=== PATIENT | female | born 1980 | race Caucasian/White ===

== ENCOUNTER 2021-06-07 14:12 | Emergency (ER) | payer SELFPAY ==
--- NOTE | 2021-06-07 14:38 | Emergency Department Report ---
HPI - General Chief Complaint: Chest Pain Time Seen by Provider: 06/07/21 14:35 - HPI HPI: For the last 2 days the patient has had a constant presternal nonradiating waxing and waning sharp-like nonpleuritic chest pain not associated with any shortness of breath nausea nor diaphoresis. Patient has not taken any medicines for this. This is never happened to her before. She has a history of type 2 diabetes for which she is supposed to be taking 500 mg twice daily of Metformin but she ran out. She denies nausea vomiting fever chills or any other ass ociated symptoms and nothing makes this worse nor better. ED Past Medical Hx - Past Medical History Previous Medical History?: Yes Hx CVA: Yes Hx Diabetes: Yes (Type II) - Surgical History Past Surgical History?: No - Family History Family history: no significant - Social History Smoking Status: Never Smoker Substance Use Type: None - Medications Home Medications: Home Medications Medication Instructions Recorded Confirmed Last Taken Type Aspirin [[place] Aspirin EC] 81 mg PO QDAC #30 06/07/21 Unknown Rx metFORMIN [Glucophage] 500 mg PO BID #60 06/07/21 Unknown Rx ED Review of Systems ROS: Stated complaint: CHEST PAIN/BLOOD PRESSURE HIGH Other details as noted in HPI Comment: All other systems reviewed and negative Physical Exam - Physical Exam Vital Signs: Vital Signs 06/07/21 14:19 Temperature 98.3 F Pulse Rate 100 H Respiratory 20 Rate Blood Pressure 138/88 [Right] O2 Sat by Pulse 97 Oximetry Physical Exam: Physical Exam: Constitutional: AAOX3. No acute distress. No diaphoresis. HENT: Normocephalic. Pupils equal and reactive. No throat edema or erythema. Neck: No neck rigidity or tenderness. Cardiovascular: Heart sounds: No murmur. Normal rate and regular rhythm. Pulses: Intact distal pulses. Lungs: No wheezing or rales. Chest wall: No tenderness. Abdominal: No distension. No mass/pulsatile mass. No abdominal tenderness, guarding nor rebound. Musculoskeletal: Normal range of motion. No edema, No calf TTP. Skin: Warm and dry. Neurological: Alert and oriented to person, place, and time. Psychiatric: Mood and affect normal. Normal cognition and memory. Normal judgement. ED Course Vital Signs 06/07/21 14:19 Temperature 98.3 F Pulse Rate 100 H Respiratory 20 Rate Blood Pressure 138/88 [Right] O2 Sat by Pulse 97 Oximetry - Reevaluation(s) Reevaluation #1: 06/07/21 17:59 EKG done interpreted at 1424 showed a rate of 90, normal. The rhythm is sinus rhythm, normal. There is no specific generalized diffuse leads. Reevaluation #2: 06/07/21 18:00 The patient remained chest pain-free while in the emergency department. She will follow up with her PCP or with the doctor we have assigned her as soon as possible return if any other issues arise. I will refill her Metformin 500 mg p.o. twice daily and give her some aspirin also. ED Medical Decision Making - Lab Data Result diagrams: 06/07/21 15:36 06/07/21 15:36 Critical care attestation.: If time is entered above; I have spent that time in minutes in the direct care o f this critically ill patient, excluding procedure time. ED Disposition Clinical Impression: Chest pain Disposition: 01 HOME / SELF CARE / HOMELESS Is pt being admited?: No Does the pt Need Aspirin: No Condition: Stable Instructions: Nonspecific Chest Pain, Adult Prescriptions: metFORMIN [Glucophage] 500 mg PO BID #60 Aspirin [[place] Aspirin EC] 81 mg PO QDAC #30 Referrals: HALINA PURCELL MD [Staff Physician] - 3-5 Days Time of Disposition: 18:00 Print Language: GERMAN
[2021-06-07 16:20] LABS: Basophils # (Auto) 0.1 K/mm3 (0.0-0.1); Basophils % (Auto) 0.6 % (0.0-1.8); Eosinophils # (Auto) 0.6 K/mm3 (0.0-0.4); Eosinophils % (Auto) 4.9 % (0.0-4.3); Hematocrit 41.4 % (30.3-42.9); Hemoglobin 14.2 gm/dl (10.1-14.3); Lymphocytes # (Auto) 2.3 K/mm3 (1.2-5.4); Lymphocytes % (Auto) 19.8 % (13.4-35.0); Mean Corpuscular HGB Conc 34 % (30-34); Mean Corpuscular Volume 88 fl (79-97); Monocytes # (Auto) 0.7 K/mm3 (0.0-0.8); Monocytes % (Auto) 6.1 % (0.0-7.3); Platelet Count 326 K/mm3 (140-440); Red Cell Distribution Width 14.1 % (13.2-15.2)
[2021-06-07 16:48] LABS: Alanine Aminotransferase 12 units/L (7-56); Albumin 3.8 g/dL (3.9-5); BUN/Creatinine Ratio 11; Blood Urea Nitrogen 9 mg/dL (7-17); Calcium 9.1 mg/dL (8.4-10.2); Hemolysis Index 2
--- NOTE | 2021-06-07 16:51 | XRay Report ---
CHEST 1 VIEW 06/07/2021 4:32 PM INDICATION / CLINICAL INFORMATION: Left chest pain for 2 days. Elevated blood pressure and headache. COMPARISON: None available. FINDINGS: SUPPORT DEVICES: None. HEART / MEDIASTINUM: The heart size and pulmonary vasculature are normal. The aorta is normal in carline ibrahima. LUNGS / PLEURA: No significant pulmonary or pleural abnormality. No pneumothorax. ADDITIONAL FINDINGS: No significant additional findings. IMPRESSION: No acute findings. Signer Name: Ant Almodovar MD Signed: 06/07/2021 4:46 PM Workstation Name: [email or web address]
[2021-06-07 18:13] VITALS: BP 137/75
--- NOTE | 2021-06-09 20:02 | Electrocardiograph Report ---
[facility] Test Date: 2021-06-07 Test Time: 14:24:58 Pat Name: DONYA FLYNN Department: Room: Gender: F Biomedical Equipment Specialist: ARI : 1980 Requested By: KAROL DAVILA Order Number: [id number] Reading MD: Ag Cool Measurements Intervals [place] Rate: 90 P: 47 MN: 155 QRS: 12 QRSD: 77 T: -76 QT: 363 QTc: 444 Interpretive Statements Sinus rhythm Nonspecific T abnormalities, diffuse leads No previous ECG available for comparison Electronically Signed On 06-09-2021 20:02:04 EDT by Ag Cool
== END 2021-06-07 18:13 | disposition home or self-care (01) ==
LOC: ED 14:12
DX: R07.9 Chest pain, unspecified (principal); E11.9 Type 2 diabetes mellitus without complications; Z86.73 Personal history of transient ischemic attack (TIA), and cerebral infarction without residual deficits
CPT/HCPCS: 36415; 71045; 80053; 82962; 83880; 84484; 84703; 85025; 93005; 99284

== ENCOUNTER 2021-06-21 10:11 | Emergency (ER) | payer MEDICAID ==
[2021-06-21] MEDS ORDERED: SODIUM CHLORIDE 0.9% 1000 ML 2,000 ML IV ONE (11:28)
[2021-06-21] MEDS ORDERED: ACETAMINOPHEN 325 MG TAB PO ONE (11:33)
[2021-06-21] MEDS ORDERED: ONDANSETRON 4 MG/2 ML INJ IV ONE (11:33)
--- NOTE | 2021-06-21 11:37 | Emergency Department Report ---
ED General Adult HPI - General Chief complaint: Hyperglycemia Stated complaint: My blood sugar is high Time Seen by Provider: 06/21/21 11:19 Source: patient, RN notes reviewed, old records reviewed Mode of arrival: Ambulatory Limitations: No Limitations - History of Present Illness Initial comments: This patient is a pleasant and cooperative 40-year-old female, with a history of body mass index 34.5, reported history of poorly controlled type 2 diabetes, currently maintained on metformin, recently moved here from [place] a few months ago, reports that she does not know her specific hemoglobin A1c, but believes that it is "high." Patient presents to the ER today with a complaint of hyperglycemia and frequent urination. She denies dysuria. She denies headache, neck pain, chest pain, shortness of breath. She endorses chronic lower abdominal cramping. She does not know if she is She recently had her metformin prescription refilled at this hospital. She is requesting a different medication because she does not like the side effect profile of metformin. -: Gradual Consistency: constant Improves with: none Worsens with: none - Related Data Previous Rx's Medication Instructions Recorded Last Taken Type Aspirin [[place] Aspirin EC] 81 mg PO QDAC #30 06/07/21 Unknown Rx Acetaminophen [Non-Aspirin Extra 500 mg PO Q6HR PRN #30 tablet 06/21/21 Unknown Rx Strength] Metoclopramide [Reglan] 10 mg PO QID PRN #30 tablet 06/21/21 Unknown Rx metFORMIN [Glucophage] 500 mg PO BID #60 tab 06/21/21 Unknown Rx Allergies Allergy/AdvReac Type Severity Reaction Status Date / Time No Known Allergies Allergy Verified 06/21/21 10:47 ED Review of Systems ROS: Stated complaint: HIHG BS/SHARP PAIN IN EVA/BACK Other details as noted in HPI Constitutional: denies: fever Eyes: denies: vision change ENT: denies: epistaxis Respiratory: denies: cough Cardiovascular: denies: chest pain Gastrointestinal: as per HPI (Lower abdominal cramping), diarrhea (Associated with metformin) Genitourinary: frequency. denies: dysuria Musculoskeletal: denies: back pain Neurological: denies: weakness Hematological/Lymphatic: denies: easy bleeding ED Past Medical Hx - Past Medical History Previous Medical History?: Yes Hx CVA: Yes Hx Diabetes: Yes (Type II) - Social History Smoking Status: Never Smoker Substance Use Type: None - Medications Home Medications: Home Medications Medication Instructions Recorded Confirmed Last Taken Type Aspirin [[place] Aspirin EC] 81 mg PO QDAC #30 06/07/21 Unknown Rx Acetaminophen [Non-Aspirin Extra 500 mg PO Q6HR PRN #30 tablet 06/21/21 Unknown Rx Strength] Metoclopramide [Reglan] 10 mg PO QID PRN #30 tablet 06/21/21 Unknown Rx metFORMIN [Glucophage] 500 mg PO BID #60 tab 06/21/21 Unknown Rx ED Physical Exam - General Limitations: No Limitations General appearance: alert, in no apparent distress - Head Head exam: Present: atraumatic, normocephalic - Eye Eye exam: Present: normal appearance, EOMI. Absent: nystagmus - ENT ENT exam: Present: normal exam, normal orophraynx, mucous membranes moist, normal external ear exam - Neck Neck exam: Present: normal inspection, full ROM. Absent: tenderness, meningismus - Respiratory Respiratory exam: Present: normal lung sounds bilaterally. Absent: respiratory distress, wheezes, rales, rhonchi, stridor, decreased breath sounds - Cardiovascular Cardiovascular Exam: Present: regular rate, normal rhythm, normal heart sounds. Absent: bradycardia, tachycardia, irregular rhythm, systolic murmur, diastolic murmur, rubs, gallop - GI/Abdominal GI/Abdominal exam: Present: soft. Absent: distended, tenderness, guarding, rebound, rigid, pulsatile mass - Extremities Exam Extremities exam: Present: normal inspection, full ROM, other (2+ pulses noted in the bilateral upper and lower extremities. There is no palpable cord. negative Homans sign. Muscular compartments are soft. The pelvis is stable.). Absent: pedal edema, calf tenderness - Back Exam Back exam: Present: normal inspection, full ROM. Absent: tenderness, CVA tenderness (R), CVA tenderness (L), paraspinal tenderness, vertebral tenderness - Neurological Exam Neurological exam: Present: alert, oriented X3, other (No facial droop. Tongue midline. Extraocular movements intact bilaterally. Facial sensation intact to light touch in V1, V2, V3 distribution bilaterally. 5 and a 5 strength in 4 extremities. Sensation intact to light touch in 4 extremities.). Absent: motor sensory deficit - Psychiatric Psychiatric exam: Present: normal affect, normal mood - Skin Skin exam: Present: warm, dry, intact, normal color. Absent: rash ED Course Vital Signs 06/21/21 06/21/21 06/21/21 10:46 11:18 11:21 Temperature 98.4 F Pulse Rate 87 83 Respiratory 18 16 13 Rate Blood Pressure 134/93 O2 Sat by Pulse 99 100 98 Oximetry O2 Sat by Pulse Oximetry [ Digit-Finger] 06/21/21 06/21/21 06/21/21 11:31 11:45 12:01 Temperature Pulse Rate 84 87 83 Respiratory 17 14 18 Rate Blood Pressure 129/85 129/85 O2 Sat by Pulse 98 100 97 Oximetry O2 Sat by Pulse Oximetry [ Digit-Finger] 06/21/21 06/21/21 06/21/21 12:15 12:31 12:45 Temperature Pulse Rate 87 86 84 Respiratory 16 16 17 Rate Blood Pressure 137/99 137/99 140/100 O2 Sat by Pulse 98 96 97 Oximetry O2 Sat by Pulse Oximetry [ Digit-Finger] 06/21/21 06/21/21 06/21/21 13:01 13:15 13:31 Temperature Pulse Rate 83 84 85 Respiratory 9 L 16 15 Rate Blood Pressure 140/100 138/99 138/99 O2 Sat by Pulse 98 99 99 Oximetry O2 Sat by Pulse Oximetry [ Digit-Finger] 06/21/21 06/21/21 06/21/21 13:45 14:01 14:15 Temperature Pulse Rate 89 81 81 Respiratory 15 25 H 20 Rate Blood Pressure 132/94 132/94 136/103 O2 Sat by Pulse 100 99 98 Oximetry O2 Sat by Pulse Oximetry [ Digit-Finger] 06/21/21 14:28 Temperature Pulse Rate Respiratory Rate Blood Pressure O2 Sat by Pulse Oximetry O2 Sat by Pulse 99 Oximetry [ Digit-Finger] - Reevaluation(s) Reevaluation #1: 06/21/21 12:17 Differential diagnosis, including not limited to: Hyperglycemia, body mass index of 34.5, encounter for lifestyle counseling Assessment and plan: 40-year-old female who is obese with a body mass index of 34.5, who is afebrile, with reassuring vital signs, with no abdominal tenderness, rebound or guarding, benign and unremarkable physical examination, currently very engaged on his cellular phone, presenting with symptomatic hyperglycemia. Doubt diabetic ketoacidosis. Denies dysuria. Extensively counseled patient to diet, exercise and lose weight. Have also counseled patient that this provider typically does not change maintenance medication such as metformin, and that she will need to follow-up with a local primary care doctor if she finds a side effect profile intolerable. Currently awaiting comprehensive metabolic panel, as well as test. 06/21/21 12:54 Patient not . She is found to be hyperglycemic without evidence of significant metabolic acidosis. Requesting Diflucan for possible yeast inf ection. May follow-up with her primary care doctor or recreational sports director for outpatient pelvic examination; does not require emergent gynecologic examination at this time. Advised patient as to the nature and significance of her laboratory studies. She endorses understanding. Discharge when hyperglycemia is improved. 06/21/21 14:28 Repeat Accu-Chek 363. Additional insulin ordered. Have verbally communicated to nursing team to pressure bag remainder of IV fluids. Patient resting comfortably in stretcher and in no acute distress. Patient is updated. 06/21/21 15:14 Final glucose 273. Resting comfortably in stretcher. No acute distress. Observed in this ER for hours without clinical decompensation. Suitable for discharge with outpatient follow-up. Outpatient resources provided. Return precautions are reviewed. - Pulse Oximetry Interpretation Digit-Finger Initial Pulse Oximetry Readin O2 Sat by Pulse Oximetry: 99 Actions Taken: none ED Medical Decision Making - Lab Data Result diagrams: 06/21/21 11:53 06/21/21 11:53 Vital Signs 06/21/21 06/21/21 06/21/21 10:46 11:18 11:21 Temperature 98.4 F Pulse Rate 87 83 Respiratory 18 16 13 Rate Blood Pressure 134/93 O2 Sat by Pulse 99 100 98 Oximetry 06/21/21 06/21/21 06/21/21 11:31 11:45 12:01 Temperature Pulse Rate 84 87 83 Respiratory 17 14 18 Rate Blood Pressure 129/85 129/85 O2 Sat by Pulse 98 100 97 Oximetry Lab Results 06/21/21 06/21/21 06/21/21 Range/Units 10:42 11:01 11:53 Hgb 15.2 H (10.1-14.3) gm/dl Hct 43.6 H (30.3-42.9) % VBG pH (7.320-7.420) POC Glucose 458 H (70-105) mg/dL Urine Color Straw (Yellow) Urine Turbidity Clear (Clear) Urine pH 7.0 (5.0-7.0) Ur Specific [place] 1.029 (1.003-1.030) Urine Protein <15 mg/dl (Negative) mg/dL Urine Glucose (UA) >=500 (Negative) mg/dL Urine Ketones Neg (Negative) mg/dL Urine Blood Neg (Negative) Urine Nitrite Neg (Negative) Urine Bilirubin Neg (Negative) Urine Urobilinogen < 2.0 (<2.0) mg/dL Ur Leukocyte Esterase Lg (Negative) Urine WBC (Auto) 9.0 H (0.0-6.0) /HPF Urine RBC (Auto) 25.0 (0.0-6.0) /HPF U Epithel Cells (Auto) 13.0 (0-13.0) /HPF Urine Bacteria (Auto) 1+ (Negative) /HPF Urine Yeast (Budding) Few /HPF 06/21/21 Range/Units 11:53 Hgb (10.1-14.3) gm/dl Hct (30.3-42.9) % VBG pH 7.367 (7.320-7.420) POC Glucose (70-105) mg/dL Urine Color (Yellow) Urine Turbidity (Clear) Urine pH (5.0-7.0) Ur Specific [place] (1.003-1.030) Urine Protein (Negative) mg/dL Urine Glucose (UA) (Negative) mg/dL Urine Ketones (Negative) mg/dL Urine Blood (Negative) Urine Nitrite (Negative) Urine Bilirubin (Negative) Urine Urobilinogen (<2.0) mg/dL Ur Leukocyte Esterase (Negative) Urine WBC (Auto) (0.0-6.0) /HPF Urine RBC (Auto) (0.0-6.0) /HPF U Epithel Cells (Auto) (0-13.0) /HPF Urine Bacteria (Auto) (Negative) /HPF Urine Yeast (Budding) /HPF Lab Results 06/21/21 06/21/21 06/21/21 Range/Units 10:42 11:01 11:53 Hgb 15.2 H (10.1-14.3) gm/dl Hct 43.6 H (30.3-42.9) % VBG pH (7.320-7.420) Sodium (137-145) mmol/L Potassium (3.6-5.0) mmol/L Chloride (98-107) mmol/L Carbon Dioxide (22-30) mmol/L Anion Gap mmol/L BUN (7-17) mg/dL Creatinine (0.6-1.2) mg/dL Estimated GFR ml/min BUN/Creatinine Ratio % Glucose (65-100) mg/dL POC Glucose 458 H (70-105) mg/dL Calcium (8.4-10.2) mg/dL Total Bilirubin (0.1-1.2) mg/dL AST (5-40) units/L ALT (7-56) units/L Alkaline Phosphatase (35-129) units/L Total Protein (6.3-8.2) g/dL Albumin (3.9-5) g/dL Albumin/Globulin Ratio % Urine Color Straw (Yellow) Urine Turbidity Clear (Clear) Urine pH 7.0 (5.0-7.0) Ur Specific [place] 1.029 (1.003-1.030) Urine Protein <15 mg/dl (Negative) mg/dL Urine Glucose (UA) >=500 (Negative) mg/dL Urine Ketones Neg (Negative) mg/dL Urine Blood Neg (Negative) Urine Nitrite Neg (Negative) Urine Bilirubin Neg (Negative) Urine Urobilinogen < 2.0 (<2.0) mg/dL Ur Leukocyte Esterase Lg (Negative) Urine WBC (Auto) 9.0 H (0.0-6.0) /HPF Urine RBC (Auto) 25.0 (0.0-6.0) /HPF U Epithel Cells (Auto) 13.0 (0-13.0) /HPF Urine Bacteria (Auto) 1+ (Negative) /HPF Urine Yeast (Budding) Few /HPF 06/21/21 06/21/21 Range/Units 11:53 11:53 Hgb (10.1-14.3) gm/dl Hct (30.3-42.9) % VBG pH 7.367 (7.320-7.420) Sodium 132 L (137-145) mmol/L Potassium 4.5 (3.6-5.0) mmol/L Chloride 93.1 L (98-107) mmol/L Carbon Dioxide 26 (22-30) mmol/L Anion Gap 17 mmol/L BUN 15 (7-17) mg/dL Creatinine 0.8 (0.6-1.2) mg/dL Estimated GFR > 60 ml/min BUN/Creatinine Ratio 19 % Glucose 469 H (65-100) mg/dL POC Glucose (70-105) mg/dL Calcium 9.9 (8.4-10.2) mg/dL Total Bilirubin 0.30 (0.1-1.2) mg/dL AST 10 (5-40) units/L ALT 13 (7-56) units/L Alkaline Phosphatase 98 (35-129) units/L Total Protein 6.9 (6.3-8.2) g/dL Albumin 4.1 (3.9-5) g/dL Albumin/Globulin Ratio 1.5 % Urine Color (Yellow) Urine Turbidity (Clear) Urine pH (5.0-7.0) Ur Specific [place] (1.003-1.030) Urine Protein (Negative) mg/dL Urine Glucose (UA) (Negative) mg/dL Urine Ketones (Negative) mg/dL Urine Blood (Negative) Urine Nitrite (Negative) Urine Bilirubin (Negative) Urine Urobilinogen (<2.0) mg/dL Ur Leukocyte Esterase (Negative) Urine WBC (Auto) (0.0-6.0) /HPF Urine RBC (Auto) (0.0-6.0) /HPF U Epithel Cells (Auto) (0-13.0) /HPF Urine Bacteria (Auto) (Negative) /HPF Urine Yeast (Budding) /HPF Critical Care Time: Yes Critical care time in (mins) excluding proc time.: 35 Critical care attestation.: If time is entered above; I have spent that time in minutes in the direct care of this critically ill patient, excluding procedure time. ED Disposition Clinical Impression: Hyperglycemia, Body mass index 34.0-34.9, adult Disposition: 01 HOME / SELF CARE / HOMELESS Is pt being admited?: No Does the pt Need Aspirin: No Condition: Good Instructions: Preventing Type 2 Diabetes Mellitus, Hyperglycemia, [id number] Additional Instructions: First-line treatment for type 2 diabetes is aggressive weight loss, diet and exercise. Recommend that patient avoid consumption of carbohydrates, sugar, processed foods. Exercise as tolerated. Lose weight as able. Avoid consumption of alcohol, tobacco and smoke products. Patient may continue metfo rmin, and she may take the prescribed pain medication and nausea medications as needed and directed. Recommend follow-up with a primary care doctor within the next month. Drink 6 cups of water per day. Avoid consumption of soda, sugar, and processed foods. Urine cultures were sent today, and results will be available in the next 3 to 5 days. Please have your primary care doctor contact the medical records department to follow-up on culture results. Please return to the emergency room right away with new pain, worsened pain, migration of pain, projectile vomiting, change in mental status, confusion, inability tolerate liquid feeds, new, worsened or different symptoms not present on the initial emergency room evaluation Prescriptions: metFORMIN [Glucophage] 500 mg PO BID #60 tab Acetaminophen [Non-Aspirin Extra Strength] 500 mg PO Q6HR PRN #30 tablet PRN Reason: Pain , Severe (7-10) Metoclopramide [Reglan] 10 mg PO QID PRN #30 tablet PRN Reason: Nausea Referrals: PRIMARY CARE, [Primary Care Provider] - 3-[address] [facility] [Provider Group] - 3-5 Days Forms: Work/School Release Form(ED)
[2021-06-21 11:40] LABS: Bacteria,Urine 1+ /HPF (Negative); Bilirubin,Urine NEG (Negative); Blood,Urine NEG (Negative); Color,Urine Straw (Yellow); Protein,Urine <15 mg/dL mg/dL (Negative); Urobilinogen,Urine < 2.0 mg/dL (<2.0)
[2021-06-21 12:04] LABS: Hematocrit 43.6 % (30.3-42.9); Hemoglobin 15.2 gm/dl (10.1-14.3)
[2021-06-21 12:30] LABS: Alanine Aminotransferase 13 units/L (7-56); Albumin 4.1 g/dL (3.9-5); BUN/Creatinine Ratio 19; Blood Urea Nitrogen 15 mg/dL (7-17); Calcium 9.9 mg/dL (8.4-10.2); Hemolysis Index 2
[2021-06-21] MEDS ORDERED: INSULIN REGULAR, HUMAN 100 UNITS/1 ML IV ONE ×2 (12:32→14:28)
[2021-06-21] MEDS ORDERED: FLUCONAZOLE 100 MG TAB PO NR (13:00)
[2021-06-21 15:28] VITALS: BP 154/69
== END 2021-06-21 15:27 | disposition home or self-care (01) ==
LOC: ED 10:11
DX: E11.65 Type 2 diabetes mellitus with hyperglycemia (principal); Z68.34 Body mass index [BMI] 34.0-34.9, adult
CPT/HCPCS: 36415; 80053; 81001; 82805; 82962; 84702; 85014; 85018; 87086; 96361; 96374; 96375; 96376; 99283; J2405; J7030; Q9967; J1815

== ENCOUNTER 2021-11-16 09:34 | Emergency (ER) | payer MEDICAID ==
[2021-11-16 18:24] LABS: Basophils # (Auto) 0.1 K/mm3 (0.0-0.1); Basophils % (Auto) 0.9 % (0.0-1.8); Eosinophils # (Auto) 0.5 K/mm3 (0.0-0.4); Eosinophils % (Auto) 5.6 % (0.0-4.3); Hematocrit 42.2 % (30.3-42.9); Lymphocytes # (Auto) 2.8 K/mm3 (1.2-5.4); Lymphocytes % (Auto) 32.1 % (13.4-35.0); Mean Corpuscular HGB Conc 33 % (30-34); Mean Corpuscular Volume 90 fl (79-97); Monocytes # (Auto) 0.6 K/mm3 (0.0-0.8); Monocytes % (Auto) 6.6 % (0.0-7.3); Platelet Count 259 K/mm3 (140-440); Red Cell Distribution Width 14.5 % (13.2-15.2)
[2021-11-16 18:34] LABS: Alanine Aminotransferase 14 units/L (7-56); Albumin 4.2 g/dL (3.9-5); BUN/Creatinine Ratio 10; Blood Urea Nitrogen 6 mg/dL (7-17); Calcium 9.4 mg/dL (8.4-10.2); Hemolysis Index 4
[2021-11-16] MEDS ORDERED: INSULIN REGULAR, HUMAN 100 UNITS/1 ML SUB-Q ONE ×2 (19:23→21:37)
[2021-11-16 19:43] LABS: Bacteria,Urine 1+ /HPF (Negative); Mucus,Urine 3+ /HPF
--- NOTE | 2021-11-16 19:44 | Emergency Department Report ---
ED General Adult HPI - General Chief complaint: Pain General Stated complaint: BODY PAIN Time Seen by Provider: 11/16/21 16:08 Source: patient Mode of arrival: Ambulatory Limitations: No Limitations - History of Present Illness Initial comments: Patient is a 41-year-old diabetic female who presents with pain in the abdominal and flank areas radiating into the vaginal area. Pain is sharp and constant with increases and decreases in severity 10 out of 10 at its worst. She has had some loose stools but states that pain feels more like menstrual cramps most of the time. She is a 1 para 0-0-1-0 with a demise at term 5 years ago. Denies any fevers chills nausea vomiting or hematochezia melena. Last menstrual period 11/04/2021. She does tell me that her has recently been unfaithful. Denies dyspareunia or vaginal discharge. She is diabetic and states she did not take her medications before coming to the ER today. She was initially triaged as body aches but her pain is isolated to the abdomen back and vagina. Severity scale (0 -10): 3 Associated Symptoms: denies: confusion, chest pain, cough, diaphoresis, fever/chills, headaches, loss of appetite, malaise, nausea/vomiting, rash, seizure, shortness of breath, syncope, weakness - Related Data Previous Rx's Medication Instructions Recorded Last Taken Type Aspirin [Audrain Aspirin EC] 81 mg PO QDAC #30 06/07/21 Unknown Rx Acetaminophen [Non-Aspirin Extra 500 mg PO Q6HR PRN #30 tablet 06/21/21 Unknown Rx Strength] Metoclopramide [Reglan] 10 mg PO QID PRN #30 tablet 06/21/21 Unknown Rx metFORMIN [Glucophage] 500 mg PO BID #60 tab 06/21/21 Unknown Rx Doxycycline Hyclate 100 mg PO BID #28 cap 11/16/21 Unknown Rx Fluconazole (Nf) [Diflucan TAB] 150 mg PO ONCE #2 tablet 11/16/21 Unknown Rx Ibuprofen [Motrin 600 MG tab] 600 mg PO Q8H PRN #18 tablet 11/16/21 Unknown Rx metroNIDAZOLE [Flagyl TAB] 500 mg PO Q12HR #28 tab 11/16/21 Unknown Rx Allergies Allergy/AdvReac Type Severity Reaction Status Date / Time No Known Allergies Allergy Verified 06/21/21 10:47 ED Review of Systems ROS: Stated complaint: BODY PAIN Other details as noted in HPI Comment: All other systems reviewed and negative Constitutional: denies: chills, fever Eyes: denies: eye pain, eye discharge, vision change ENT: denies: ear pain, throat pain Respiratory: denies: cough, shortness of breath, wheezing Cardiovascular: denies: chest pain, palpitations Endocrine: no symptoms reported Gastrointestinal: as per HPI Genitourinary: as per HPI, discharge. denies: urgency, dysuria, frequency, hematuria, abnormal menses, dyspareunia Musculoskeletal: denies: back pain, joint swelling, arthralgia Skin: denies: rash, lesions Neurological: denies: headache, weakness, paresthesias Psychiatric: denies: anxiety, depression Hematological/Lymphatic: denies: easy bleeding, easy bruising ED Past Medical Hx - Past Medical History Hx CVA: Yes Hx Diabetes: Yes (Type II) - Surgical History Past Surgical History?: No - Social History Smoking Status: Never Smoker Substance Use Type: None - Medications Home Medications: Home Medications Medication Instructions Recorded Confirmed Last Taken Type Aspirin [Audrain Aspirin EC] 81 mg PO QDAC #30 06/07/21 Unknown Rx Acetaminophen [Non-Aspirin Extra 500 mg PO Q6HR PRN #30 tablet 06/21/21 Unknown Rx Strength] Metoclopramide [Reglan] 10 mg PO QID PRN #30 tablet 06/21/21 Unknown Rx metFORMIN [Glucophage] 500 mg PO BID #60 tab 06/21/21 Unknown Rx Doxycycline Hyclate 100 mg PO BID #28 cap 11/16/21 Unknown Rx Fluconazole (Nf) [Diflucan TAB] 150 mg PO ONCE #2 tablet 11/16/21 Unknown Rx Ibuprofen [Motrin 600 MG tab] 600 mg PO Q8H PRN #18 tablet 11/16/21 Unknown Rx metroNIDAZOLE [Flagyl TAB] 500 mg PO Q12HR #28 tab 11/16/21 Unknown Rx ED Physical Exam - General Limitations: No Limitations General appearance: alert, in no apparent distress - Head Head exam: Present: atraumatic, normocephalic - Eye Eye exam: Present: normal appearance - ENT ENT exam: Present: mucous membranes moist - Neck Neck exam: Present: normal inspection - Respiratory Respiratory exam: Present: normal lung sounds bilaterally. Absent: respiratory distress, wheezes, rales, chest wall tenderness - Cardiovascular Cardiovascular Exam: Present: regular rate, normal rhythm. Absent: systolic murmur, diastolic murmur, rubs, gallop - GI/Abdominal GI/Abdominal exam: Present: soft, tenderness (Suprapubic), normal bowel sounds. Absent: distended, guarding, rebound, rigid - External exam: Present: normal external exam Speculum exam: Present: vaginal discharge (Moderate yellow), cervical discharge (Mild yellow). Absent: vaginal bleeding, foreign body Bi-manual exam: Present: cervical motion tendernes. Absent: adnexal tenderness, adnexal mass, uterine enlargement, uterine tenderness - Extremities Exam Extremities exam: Present: normal inspection - Back Exam Back exam: Present: normal inspection, full ROM. Absent: CVA tenderness (R), CVA tenderness (L) - Neurological Exam Neurological exam: Present: alert, oriented X3 - Psychiatric Psychiatric exam: Present: normal affect, normal mood - Skin Skin exam: Present: warm, dry, intact, normal color. Absent: rash ED Course Vital Signs 11/16/21 09:59 Temperature 97.5 F L Pulse Rate 84 Respiratory 16 Rate Blood Pressure 147/92 [Right] O2 Sat by Pulse 98 Oximetry - Reevaluation(s) Reevaluation #1: 11/16/21 20:45 Patient given insulin 6 units, Rocephin 1 g IM and tramadol here. She remained nontoxic, happy and smiling throughout her stay. Abdominal exam/serial exams: Abdomen remains soft with suprapubic tenderness and no guarding. Reevaluation #2: 11/16/21 21:47 Patient is second glucose was actually 480, not 180. Further inquiry with patient, she drank 4 cups of juice and ate some chips as well as 8 packs of shirlene crackers while she was here in the emergency department. That is all she has eaten today. We will proceed with 4 more units of insulin and her evening dose of Glucophage but she needs to eat a protein meal when she gets home. She remains smiling and happyabdomen remains benign. 11/16/21 21:49 11/16/21 21:54 ED Medical Decision Making - Lab Data Result diagrams: 11/16/21 18:02 11/16/21 18:02 - Medical Decision Making Patient is a 41-year-old female who presents with abdominal pelvic and vaginal pain radiating into her back. Yellow vaginal discharge on exam and patient states her has had recent other sexual partners. She does have some mild cervical motion tenderness on exam, so given her diabetes I will treat her aggressively for 14 days. Blood sugar found to be elevated at 375. She did not take her metformin this morning before coming to the ER. She does state that her last hemoglobin A1c was elevated. She has a an appointment with her primary care doctor later this month. Insulin and Rocephin given. Repeat blood sugar 480. But upon further inquiry, the patient states that she was given 4 cups of juice, a bag of chips, and 8 packs of shirlene crackers while she was here. Will give 4 more units of insulin and her evening dose of Glucophage but she needs to go home in 8 protein meal. Discussed skipping her Glucophage in the future. Blood pressure at discharge 150/88, pulse 86, respiration 16, temperature 97.6, pulse oximetry 100% on room air. She is smiling and joking on the phone with her family members. Critical care attestation.: If time is entered above; I have spent that time in minutes in the direct care of this critically ill patient, excluding procedure time. ED Disposition Clinical Impression: Cervicitis, acute, non-specific, Hyperglycemia Disposition: 01 HOME / SELF CARE / HOMELESS Is pt being admited?: No Condition: Stable Instructions: Cervicitis (ED), Cervicitis, [id number], Gestational Diabetes Mellitus, Self Care, [id number], Pelvic Inflammatory Disease, [id number] Additional Instructions: Abstain from intercourse until treatment completed and asymptomatic as well as partners treated or negative results. Take all of your medications as prescribed. Follow-up with health department clinic if any results are positive for further testing. Take your metformin as soon as you get home. Follow-up with your primary care doctor this week for closer management of your diabetes. Make sure you take a probiotic with your antibiotics. Return if fever vomiting or worsening pain. Prescriptions: Fluconazole (Nf) [Diflucan TAB] 150 mg PO ONCE #2 tablet Doxycycline Hyclate 100 mg PO BID #28 cap metroNIDAZOLE [Flagyl TAB] 500 mg PO Q12HR #28 tab Ibuprofen [Motrin 600 MG tab] 600 mg PO Q8H PRN #18 tablet PRN Reason: Pain Referrals: KATHARINE CABA MD [Primary Care Provider] - 3-[address] [facility] [Outside] - 3-5 Days Forms: STI Treatment and Prevention, Work/School Release Form(ED) Time of Disposition: 21:31
[2021-11-16 19:47] LABS: Color,Urine Yellow (Yellow)
[2021-11-16] MEDS ORDERED: LIDOCAINE-MPF (1%) 10 MG/1 ML VIAL 5 ML INFILTRATI ONE (20:00)
[2021-11-16] MEDS ORDERED: traMADol 50 MG TAB PO ONE (20:44)
[2021-11-16] MEDS ORDERED: metFORMIN 500 MG TAB PO ONE (21:38)
[2021-11-16] MEDS ORDERED: IBUPROFEN 600 MG TAB PO ONE (21:50)
[2021-11-16 23:01] VITALS: BP 148/96
== END 2021-11-16 22:40 | disposition home or self-care (01) ==
LOC: ED 09:34
DX: N72 Inflammatory disease of cervix uteri (principal); E11.65 Type 2 diabetes mellitus with hyperglycemia; Z86.73 Personal history of transient ischemic attack (TIA), and cerebral infarction without residual deficits; Z79.899 Other long term (current) drug therapy
CPT/HCPCS: 36415; 80053; 81001; 82962; 83690; 84703; 85025; 87591; 96372; 99284; J0696; J3490; 99283; Q9967; J1815